=== PATIENT | male | born 1975 | race Caucasian/White ===

== ENCOUNTER 2025-04-19 13:33 | Day surgery (SDC) | payer BC ==
[~2025-04-19] VITALS: Ht 203.2 cm; Wt 152.0 kg
[2025-04-19 13:56] VITALS: BP 143/78
[2025-04-19] MEDS ORDERED: Bupivacaine 0.5% HCl 5 MG/ML 30MLVIAL ONE (14:02)
[2025-04-19] MEDS ORDERED: METF500C PO (14:03)
[2025-04-19] MEDS ORDERED: GABA300 PO (14:04)
[2025-04-19] MEDS ORDERED: Lisinopril2.5 MG PO (14:04)
[2025-04-19] MEDS ORDERED: Crestor40 MG PO (14:05)
[2025-04-19] MEDS ORDERED: JARDIANCE25 MG PO (14:06)
[2025-04-19] MEDS ORDERED: VICTOZA 2-0.6 MG/0.1 SC (14:07)
[2025-04-19] MEDS ORDERED: CeFAZolin Sodium 3,000 MG in NS 100 ML IV SCH (14:10)
[2025-04-19] MEDS ORDERED: Midazolam HCl 1MG / ML 2ML Vial ONE (14:28)
[2025-04-19] MEDS ORDERED: FentaNYL Citrate 50 MCG/ML 2 ML Injection IV PRN ×2 (14:55)
[2025-04-19] MEDS ORDERED: Labetalol HCL 5 MG/ML 4ML Injection (Single Dose) IV PRN (14:55)
[2025-04-19] MEDS ORDERED: HYDROmorphone HCl/Pf 1MG SYR IV PRN ×2 (14:55)
[2025-04-19] MEDS ORDERED: Ondansetron HCl 2 MG / ML 2ML Vial IV PRN (15:00)
[2025-04-19 15:10] VITALS: BP 147/80
== END 2025-04-19 15:27 | disposition home or self-care (01) ==
LOC: ORD 13:33 → ORSCMMR 13:33 → ORD 13:34 → ORSCMMR 13:34 → ORD 15:27 → ORSCMMR 15:27
PROVIDERS: Podiatrist
PROC: 0Y6Q0Z3 Detachment at Left 1st Toe, Low, Open Approach (ICD-10-PCS; principal; 2025-04-19 13:30)
DX: M86.172 Other acute osteomyelitis, left ankle and foot (principal); L97.524 Non-pressure chronic ulcer of other part of left foot with necrosis of bone; E11.40 Type 2 diabetes mellitus with diabetic neuropathy, unspecified; E78.5 Hyperlipidemia, unspecified; F17.210 Nicotine dependence, cigarettes, uncomplicated; E78.00 Pure hypercholesterolemia, unspecified; Z79.899 Other long term (current) drug therapy; Z79.82 Long term (current) use of aspirin; Z79.84 Long term (current) use of oral hypoglycemic drugs; Z79.85 Long-term (current) use of injectable non-insulin antidiabetic drugs
CPT/HCPCS: 82947; 87070; 87071; 87075; 87077; 87147; 87186; 87205; 88305; J0690; J2250; J2704; J7120

== ENCOUNTER → 2025-06-02 | Outpatient (CLI) | payer BC ==
[~2025-06-02] MED LIST: Crestor40 MG PO; GABA300 PO; JARDIANCE25 MG PO; Lisinopril2.5 MG PO; METF500C PO; VICTOZA 2-0.6 MG/0.1 SC
== END ==
LOC: LAB 15:34 → LAB SHORT 15:34
DX: L97.526 Non-pressure chronic ulcer of other part of left foot with bone involvement without evidence of necrosis (principal); E11.42 Type 2 diabetes mellitus with diabetic polyneuropathy; M86.172 Other acute osteomyelitis, left ankle and foot; L03.116 Cellulitis of left lower limb
CPT/HCPCS: 87071; 87075; 87077; 87147; 87186; 87205; 88305; 88311